=== PATIENT | female | born 1960 | race Caucasian/White ===

== ENCOUNTER 2017-06-04 09:48 | Emergency (ER) | payer OTHER ==
[~2017-06-04] VITALS: Ht 160 cm; Wt 68.0 kg
[~2017-06-04 09:48] MED LIST: ACETAMINOP160 MG/5 M GT; ALBUTEROL2.5 MG/3 M IH; ALBUTEROL2.5 MG/31 IH; ALPRAZOLAM 0.0.25 M1 GT; CALCIUM GT; GABAPENTIN GT; JEVITY1000 M1 PO; LEVOTHROID175 MCG PO; NYSTATIN15 GM; RANITIDINE15 MG/1 ML GT; SYNTHROID150 MCG GT; SYSTANE 0.3-0.1 EACH OP; VITAMIN D400 UNI1 GT; WHITE PETROLATUM5 GM
[2017-06-04 10:59] LABS: CREATININE 0.3 mg/dL (0.6-1.0); POTASSIUM 4.2 mmol/L (3.5-5.1)
[2017-06-04 11:03] LABS: DIRECT BILIRUBIN 0.2 mg/dL (<0.1-0.3); TOTAL BILIRUBIN 0.9 mg/dL (<0.1-1.0); TOTAL PROTEIN 7.1 g/dL (6.4-8.2)
[2017-06-04 11:29] LABS: ABSOLUTE NEUTROPHILS 11.1 thou/uL (1.4-8.2); BASOPHILS 0.4 % (0.0-2.0); EOSINOPHILS 1.2 % (0.0-3.0); HEMATOCRIT 31.2 % (37.0-47.0); HEMOGLOBIN 10.6 gm/dL (12.0-15.0); LYMPHOCYTES 7.7 % (24.0-44.0); MCH 28.6 pg (26.0-34.0); MCHC 34.1 g/dL (28.0-37.0); MCV 83.9 fL (80.0-100.0); MONOCYTES 7.4 % (1.0-8.0); PLATELET COUNT 111 thou/uL (150-400); POLYS 83.3 % (36.0-66.0); RBC 3.72 mil/uL (4.20-5.00); RDW 14.6 % (10.5-14.5); WBC 13.3 thou/uL (4.0-11.0)
[2017-06-04 12:38] LABS: URINE BILIRUBIN NEGATIVE (Negative); URINE BLOOD NEGATIVE (Negative); URINE CLARITY CLOUDY; URINE COLOR YELLOW; URINE GLUCOSE-RANDOM* NEGATIVE (Negative); URINE KETONES NEGATIVE (Negative); URINE NITRITE-REFLEX NEGATIVE (Negative); URINE PROTEIN (DIPSTICK) TRACE (Negative); URINE UROBILINOGEN 0.2 E.U./dl (0.2-1.0)
[2017-06-04 12:39] LABS: URINE LEUKOCYTES-REFLEX 1+ (Negative)
[2017-06-04 13:02] LABS: BACTERIA-REFLEX >30 Many /HPF (None Seen); CASTS None Seen /LPF (None Seen); CRYSTALS None Seen /LPF (None Seen); SQUAMOUS 0-3 Few /LPF (0-3); URINE RBC None Seen /HPF (0-2)
[2017-06-04] MEDS ORDERED: KEFLEX500 M2 PO (14:38)
[2017-06-04 15:53] VITALS: BP 131/76
== END 2017-06-04 16:28 ==
LOC: ER 09:48
PROVIDERS: Nurse Practitioner
DX: S82.141B Displaced bicondylar fracture of right tibia, initial encounter for open fracture type I or II (principal); N39.0 Urinary tract infection, site not specified; R65.10 Systemic inflammatory response syndrome (SIRS) of non-infectious origin without acute organ dysfunction; J45.909 Unspecified asthma, uncomplicated; G40.909 Epilepsy, unspecified, not intractable, without status epilepticus; F41.9 Anxiety disorder, unspecified; E03.9 Hypothyroidism, unspecified; Z86.14 Personal history of Methicillin resistant Staphylococcus aureus infection; J96.10 Chronic respiratory failure, unspecified whether with hypoxia or hypercapnia; Z88.1 Allergy status to other antibiotic agents; Z88.8 Allergy status to other drugs, medicaments and biological substances; X58.XXXA Exposure to other specified factors, initial encounter; Y93.89 Activity, other specified; Y92.89 Other specified places as the place of occurrence of the external cause; Y99.8 Other external cause status